=== PATIENT | female | born 1935 | race Caucasian/White ===

== ENCOUNTER 2017-08-11 14:24 | Outpatient (CLI) | payer OTHER ==
[~2017-08-11 14:24] MED LIST: ATARAX10 MG PO; ATARAX25 MG PO; CORGARD40 MG PO; COZAAR25 MG PO; Coreg PO; FLUCONAZOLE100 MG PO; INTEGRA F CAPS1 EACH PO; ISORDIL10 MG PO; NEURONTIN300 MG PO; Neurin-Sl Tablet Sl SL; PRE PROTEIN 2030 ML PO; PROTONIX40 MG PO; PYRIDOXINE HCL100 MG PO; VERTIN-3232 MG PO; VYTORIN 10-20 M1 TAB PO; XOPENEX0.63 MG/3 IH
== END 2017-08-11 14:43 | disposition home or self-care (01) ==
LOC: RAD 501 14:24
DX: M25.561 Pain in right knee (principal); M25.562 Pain in left knee

== ENCOUNTER 2018-09-18 10:13 | Outpatient (CLI) | payer OTHER | END 2018-09-18 10:41 | disposition home or self-care (01) | LOC: LAB 10:13 | DX: E88.89 Other specified metabolic disorders (principal); M81.8 Other osteoporosis without current pathological fracture; E83.42 Hypomagnesemia; E56.1 Deficiency of vitamin K ==